=== PATIENT | female | born 2000 | race Caucasian/White ===

== ENCOUNTER 2020-02-08 04:50 | Emergency (ER) | payer OTHER ==
[~2020-02-08] VITALS: Ht 162.6 cm; Wt 61.2 kg
--- NOTE | ~2020-02-08 | EMS ---
[facility] [address] [place] [address] EMS Patient Care Report Name: ANGEL STEELE Room #: PRE M.R.#: [id number] Admission: Attend Phys: Discharge: Date of : [birth year] Report #: [id number] THIS REPORT FOR: //name// Report Transmitted: 02/08/2020 04:38 EMS Care Summary [place], [place]/[facility] Incident [id number] @ 02/08/2020 04:07 Incident Location [address] Patient ANITA STEELE Female, 19 Years 2000 Patient Address Chief Complaint ETOH OVERDOSE Disposition Transported No Lights/[place] Dispatch Reason Unknown Problem/Person Down Transported To [facility] Narrative RESPONDED TO UNKNOWN AT [place] WITH PD ON SCENE. UPON ARRIVAL PT FOUND SLEEPING IN RECOVERY POSITION LAYING ON GROUND IN PARKING LOT. BYSTANDERS REPORT PT IS SUSPECTED TO BE ETOH AND IS UNABLE TO WALK. PT GROANS TO PAINFUL STIMULI AND WHEN MOVED PT TRIES TO FIGHT IT. PT ATTEMPTED TO TALK BUT SLURS WORDS. PT TEAM CARRIED TO COT AND PLACED IN RECOVERY POSITION. PT VITALS OBTAINED AND NO OBVIOUS TRAUMA NOTED. NO ALCOHOL OR DRUGS NOTED AT SCENE BUT ALCOHOL USE IS SUSPECTED. PT TRANSPORTED TO [facility] [address] WITH NO CHANGE IN CONDITION. PT TEAM LIFTED TO BED AND HANDRAILS UP. REPORT GIVEN TO NURSE. Initial Vitals @04:44P: 83,R: 14,BP: 113/64,CO: 8,SpO2: 96, @04:40P: 75,R: 14,BP: 109/73,Pain: 0/10,GCS: 9,Glucose: 98,SpO2: 99,Revised Trauma: 11, [facility] [address] [place] [address] EMS Patient Care Report Name: STEELEANGEL KEE Room #: PRE M.R.#: [id number] Admission: Attend Phys: Discharge: Date of : [birth year] Report #: [id number] Assessments @04:33MENTAL:SKIN:HEENT:Head/Face: No Abnormalities,Neck/Airway: No Abnormalities,LUNG SOUNDS:General: No Abnormalities,Left Upper: No Abnormalities,Right Upper: No Abnormalities,Left Lower: No Abnormalities,Right Lower: No Abnormalities,ABDOMEN:General: No Abnormalities,Left Upper: No Abnormalities,Right Upper: No Abnormalities,Left Lower: No Abnormalities,Right Lower: No Abnormalities,PELVIS//GI:No Abnormalities,EXTREMITIES:Left Arm: No Abnormalities,Right Arm: No Abnormalities,Left Leg: No Abnormalities,Right Leg: No Abnormalities,PULSE:NEURO:Slurred Speech,@04:40MENTAL:Other,SKIN:No Abnormalities,HEENT:Head/Face: No Abnormalities,Eyes: No Abnormalities,Neck/Airway: No Abnormalities,LUNG SOUNDS:General: No Abnormalities,Left Upper: No Abnormalities,Right Upper: No Abnormalities,Left Lower: No Abnormalities,Right Lower: No Abnormalities,ABDOMEN:General: No Abnormalities,Left Upper: No Abnormalities,Right Upper: No Abnormalities,Left Lower: No Abnormalities,Right Lower: No Abnormalities,PELVIS//GI:No Abnormalities,EXTREMITIES:Left Arm: No Abnormalities,Right Arm: No Abnormalities,Left Leg: No Abnormalities,Right Leg: No Abnormalities,PULSE:NEURO:No Abnormalities, Impression Overdose - Alcohol Procedures @04:33ALS AssessmentSucceeded Timeline 04:06,Call Received 04:06,Dispatch Notified 04:07,Dispatched 04:09,En Route 04:32,On Scene 04:33,At Patient 04:33,ALS Assessment,Succeeded, 04:40,BP: 109/73 M,PULSE: 75,RR: 14 R,SPO2: 99 Ox,ETCO2: ,B,PAIN: 0,GCS: 9, 04:44,BP: 113/64 M,PULSE: 83,RR: 14 R,SPO2: 96 Ox,ETCO2: ,BG: ,PAIN: ,GCS: , 04:44,Depart Scene 04:44,At Destination 04:59,Call Closed Disclaimer v1.1 Copyright 2020 [employer] This EMS Care Summary contains data elements from the applicable legal record (which may be displayed differently). It is designed to provide pertinent information for the following purposes: continuity of care, clinical quality, [address] [address] EMS Patient Care Report Name: ANGEL STEELE Room #: PRE M.R.#: [id number] Admission: Attend Phys: Discharge: Date of : [birth year] Report #: [id number] and state data reporting. The complete legal record is available to ED staff and administrators of the receiving hospital in [facility]'s Patient Tracker. All data is provided "as is."
[2020-02-08 05:35] LABS: ABSOLUTE NEUTROPHILS 4.1 thou/uL (1.4-8.2); BASOPHILS 0.3 % (0.0-2.0); EOSINOPHILS 0.4 % (0.0-3.0); HEMOGLOBIN 13.1 gm/dL (12.0-15.0); LYMPHOCYTES 35.2 % (24.0-44.0); MCH 29.1 pg (26.0-34.0); MCHC 33.6 g/dL (28.0-37.0); MCV 86.5 fL (80.0-100.0); MONOCYTES 9.1 % (1.0-8.0); PLATELET COUNT 259 thou/uL (150-400); WBC 7.5 thou/uL (4.0-11.0)
[2020-02-08 05:38] LABS: ANION GAP 15 mmol/L (7-16); BUN 10 mg/dL (7-18); CALCIUM 8.6 mg/dL (8.5-10.1); CHLORIDE 105 mmol/L (98-107); CO2 20 mmol/L (21-32); CREATININE 0.6 mg/dL (0.6-1.0); GLUCOSE 115 mg/dL (74-106); POTASSIUM 3.5 mmol/L (3.5-5.1); SODIUM 140 mmol/L (136-145)
[2020-02-08 05:40] LABS: URINE BILIRUBIN NEGATIVE (Negative); URINE BLOOD NEGATIVE (Negative); URINE CLARITY CLEAR; URINE COLOR YELLOW; URINE GLUCOSE-RANDOM* NEGATIVE (Negative); URINE KETONES NEGATIVE (Negative); URINE LEUKOCYTES-REFLEX NEGATIVE (Negative); URINE NITRITE-REFLEX NEGATIVE (Negative); URINE PROTEIN (DIPSTICK) NEGATIVE (Negative); URINE SPECIFIC GRAVITY <= 1.005 (1.005-1.035); URINE UROBILINOGEN 0.2 E.U./dl (0.2-1.0)
[2020-02-08 05:44] LABS: ALBUMIN 4.1 g/dL (3.4-5.0); DIRECT BILIRUBIN < 0.1 mg/dL (<0.1-0.2); LIPASE 112 U/L (73-393); SALICYLATE 3.5 mg/dL (2.8-20.0); SGOT 39 U/L (15-37); SGPT 42 U/L (30-65); TOTAL BILIRUBIN 0.2 mg/dL (0.2-1.0)
[2020-02-08 05:47] LABS: AMP/METHAMP Negative (Negative); BARBITURATES Negative (Negative); BENZODIAZEPINES Negative (Negative); COCAINE Negative (Negative); METHADONE Negative (Negative); OPIATES Negative (Negative); PCP Negative (Negative)
--- NOTE | 2020-02-08 11:20 | EKG ---
[facility] [place] [address] ELECTROCARDIOGRAM REPORT Name: ANGEL STEELE Room #: PRE [facility]..#: [id number] Admission: Attend Phys: Discharge: Date of : [birth year] Report #: [id number] THIS REPORT FOR: cc: Kevin Cole MD [facility] ~ THIS REPORT FOR: //name// [facility] ED Test Date: 2020-02-08 Test Time: 06:15:58 Pat Name: ANGEL STEELE Department: Room: Gender: F Procurement Technician: HOA : 2000 Requested By: Darren Altamirano Order Number: [id number] MD: Kevin Cole Measurements Intervals [place] Rate: 79 P: 82 CT: 147 QRS: 101 QRSD: 105 T: 60 QT: 418 QTc: 480 Interpretive Statements Sinus rhythm Borderline right axis deviation No previous ECG available for comparison Electronically Signed On 02-08-2020 11:20:49 CDT by Kevin Cole [email or web address] <ELECTRONICALLY SIGNED> By: Kevin Cole MD, FAC 02/08/20 1120 0615 4 Kevin Cole MD, FACC /EPI
[2020-02-08 13:29] VITALS: BP 102/51
== END 2020-02-08 13:29 | disposition home or self-care (01) ==
LOC: ER 04:50
PROVIDERS: Emergency Medicine
DX: F10.129 Alcohol abuse with intoxication, unspecified (principal); Y90.8 Blood alcohol level of 240 mg/100 ml or more